=== PATIENT | female | born 1965 | race Caucasian/White ===

== ENCOUNTER 2016-09-15 06:13 | Outpatient (CLI) | payer OTHER ==
[~2016-09-15] VITALS: Ht 160 cm; Wt 66.4 kg
[2016-09-15] VITALS (18 sets, daily range): BP systolic 104–135; BP diastolic 67–93; PULSE 55–83; TEMP 97.3
[2016-09-15] MEDS ORDERED: CALCIUM 600MG+D1 TAB PO (07:58)
[2016-09-15] MEDS ORDERED: MYRBETR25MG PO (07:58)
[2016-09-15] MEDS ORDERED: TYLENOL 500MG500 MG PO (07:59)
[2016-09-15] MEDS ORDERED: BENADRYL25 M2 PO (07:59)
[2016-09-15] MEDS ORDERED: ALEVE 220MG220 MG PO (07:59)
== END 2016-09-15 13:54 | disposition home or self-care (01) ==
LOC: COL.CAR 06:13
DX: M84.48XA Pathological fracture, other site, initial encounter for fracture (principal); M48.56XA Collapsed vertebra, not elsewhere classified, lumbar region, initial encounter for fracture
CPT/HCPCS: 0200T; 22514; C1713; J2250; J3010; J7120